=== PATIENT | male | born 1955 | race Caucasian/White ===

== ENCOUNTER 2016-11-08 15:22 | Emergency (ER) | payer BC ==
[2016-11-08 15:43] VITALS: BP 122/89; PULSE 100; RESP 20; TEMP 97.6; O2SAT 100
== END 2016-11-08 16:37 | disposition home or self-care (01) ==
LOC: ED 15:22
DX: S60.012A Contusion of left thumb without damage to nail, initial encounter (principal); W31.89XA Contact with other specified machinery, initial encounter
CPT/HCPCS: 73130; 99282